=== PATIENT | female | born 1980 | race Caucasian/White ===

== ENCOUNTER 2019-05-18 09:54 | Day surgery (SDC) | payer OTHER ==
[2019-05-03 10:37] VITALS: BMI 23.4
--- NOTE | 2019-05-07 13:47 | HP ---
Admitting History and Physical - Primary Care Physician PCP: Ramon Sharma - Admission Chief Complaint: right breast atypia History of Present Illness: Patient is a 38 yo female who underwent a screening MRI (sec to family h/o breast cancer) and was noted to have a right 12 oclock enhancing mass which was confirmed on US. Patient underwent an FNA of this lesion on 01/20 and was noted to have right breast atypia. Patient is to undergo a right breast WE with NL. History Source: Patient Limitations to Obtaining History: No Limitations - Past Medical History ...LMP: 04/15/19 Additional Past Medical History: None - Past Surgical History Past Surgical History: Yes: None - Advance Directives Advance Directives: Yes: Health Care Proxy - Smoking History Smoking history: Never smoked Have you smoked in the past 12 months: No - Alcohol/Substance Use Hx Alcohol Use: Yes (OCCASIONAL) Home Medications - Allergies Allergies/Adverse Reactions: Allergies Allergy/AdvReac Type Severity Reaction Status Date / Time lidocaine AdvReac Intermediate SHAKINESS Verified 05/03/19 10:24 - Home Medications Home Medications: Ambulatory Orders NK [No Known Home Medication] 05/03/19 Family Medical History Family Hx Cancer: Mother (breast cancer at 39) Review of Systems - Review of Systems Constitutional: reports: No Symptoms Cardiovascular: reports: No Symptoms Respiratory: reports: No Symptoms Physical Examination Constitutional: Yes: Well Nourished, Calm Breast(s): Yes: Other (On exam, the breasts are symmetrical bilaterally. No suspicious masses or adenopathy noted bilaterally.) Problem List - Problems (1) Atypical hyperplasia of right breast Code(s): N60.91 - UNSPECIFIED BENIGN MAMMARY DYSPLASIA OF RIGHT BREAST Assessment/Plan Plan: Right breast WE with NL
[2019-05-18] MEDS ORDERED: BUPIVACAINE HCL/PF 2.5 MG/ML - 30 ML VIAL IJ ONE (12:59)
[2019-05-18] MEDS ORDERED: LIDOCAINE HCL 1%, 10 MG/ML (20ML VIAL) ONE (12:59)
[2019-05-18] MEDS ORDERED: MIDAZOLAM HCL 2 MG/2 ML SINGLE DOSE VIAL ONE (13:07)
[2019-05-18] MEDS ORDERED: PROPOFOL 20 ML ONE (13:21)
[2019-05-18] MEDS ORDERED: ePHEDrine SULFATE 50 MG/1 ML AMPULE ONE (13:51)
[2019-05-18] MEDS ORDERED: KETOROLAC TROMETHAMINE 30 MG/1 ML VIAL IVPUSH PRN (14:37)
[2019-05-18] MEDS ORDERED: ONDANSETRON 4 MG/2 ML VIAL IVPUSH PRN ×2 (14:37→15:44)
[2019-05-18] MEDS ORDERED: DEXTROSE 5%-0.45% SALINE 1,000 ML IV SCH (14:45)
[2019-05-18 15:25] VITALS: TEMP 97.8
[2019-05-18] MEDS ORDERED: oxyCODONE HCL 5 MG TABLET ONE (15:36)
[2019-05-18] MEDS ORDERED: oxyCODONE HCL 5 MG TABLET PO PRN ×2 (15:44)
[2019-05-18] MEDS ORDERED: PROMETHAZINE HCL 25 MG/1 ML VIAL IVPUSH PRN (15:44)
[2019-05-18 15:56] VITALS: BP 108/64; PULSE 72
--- NOTE | 2019-05-19 14:56 | OP ---
DATE OF OPERATION: 05/18/2019 PREOPERATIVE DIAGNOSIS: Right breast atypia. POSTOPERATIVE DIAGNOSIS: Right breast atypia. PROCEDURE: Right breast partial mastectomy with mammographic needle localization. ANESTHESIA: General laryngeal mask airway anesthesia. PRIMARY SURGEON: Geneva Sharma MD MONITOR TECHNICIAN: Anurag Mora, physician's staff assistant. COMPLICATIONS: None. INDICATIONS: Briefly, the patient is a 38-year-old nulliparous premenopausal female of [place] descent with a family history with her mother had breast cancer at age 39. The patient has been getting close followup and underwent mammography in December 2018 showing some findings in the right breast retroareolar region which were confirmed on ultrasound as an 8-mm density. Ultrasound-guided core biopsy in January 2019 with fine-needle aspiration showed atypia and stromal fibrosis. The patient was advised in undergoing a wide excision. She was brought in for the procedure on May 18, 2019. She first underwent mammographic needle localization with a clip and was brought to the holding area at [facility]. In the holding area, site verification was made and informed consent was obtained. She was brought into the operating room and laid on the OR table in a supine position. Venodynes were placed on the lower extremities prior to induction. She received general laryngeal mask airway anesthesia. No antibiotics were given, given the small nature of the excision. The right breast was sterilely prepped and draped in the usual fashion with the wire prepped in the field. Timeout was performed after she was anesthetized and sterilely prepped and draped. A curvilinear incision was made around the right breast 12 o'clock periareolar region. Dissection was undertaken around the needle localization, and the breast tissue was completely removed from around the wire, with the wire intact within the middle of the specimen. The specimen was oriented with a long lateral, short superior suture, and specimen radiograph showed removal of the clip in question. The specimen was placed in formalin to be sent to pathology. Hemostasis was achieved. The breast parenchyma was then reapproximated using 2-0 plain suture. The skin was closed using interrupted 3-0 deep dermal Vicryl suture and a running 4-0 subcuticular Monocryl suture. Mastisol and Steri-Strips were applied over the wound, with a compressive dressing placed over this. She was placed in a surgical bra postoperatively, and laryngeal mask airway tube as removed at the end of the case. The patient was awake and alert and brought to the postanesthesia care unit in stable condition. She will be recovered and discharged home the same day once discharge criteria are met. She is to follow up in the office in 1 week for formal wound pathology check. Again, all sponge and needle counts were correct at the end of the case. Estimated blood loss was minimal. GENEVA SHARMA M.D. [id number]
--- NOTE | 2019-05-20 14:35 | PATH ---
Surgical Pathology Report Patient Name: GARETT GRIJALVA [facility]. Rec. #: [id number] /Age/Gender: 1980 (Age: 38) / F Account: [id number] Location: [facility] Taken: 05/18/2019 Received: 05/18/2019 Reported: 05/20/2019 Physicians: Ramon Sharma M.D. Specimen(s) Received RIGHT BREAST WIDE EXCISION Clinical History Atypia on core biopsy Final Diagnosis BREAST, RIGHT, WIDE EXCISION: BENIGN BREAST TISSUE SHOWING FIBROCYSTIC CHANGES INCLUDING CYSTIC APOCRINE METAPLASIA, USUAL DUCTAL HYPERPLASIA (UDH) AND STROMAL FIBROSIS. PRIOR BIOPSY SITE CHANGES ARE PRESENT. Electronically Signed Payton Bocanegra M.D. Gross Description Received in formalin, labeled "right breast wide excision," is a 3.5 x 2.2 x 1.6 cm. vazquez-yellow, irregular, portion of fibroadipose tissue with a needle localization wire present. There is a short suture marking the superior aspect and a long suture marking the lateral aspect, per the surgeon. There is no skin present. The specimen is inked as follows: anterior and lateral red; superior blue; medial yellow; inferior green; posterior black. The specimen is serially sectioned from anterior to deep. Sectioning reveals diffuse dense white fibrous tissue. No definitive mass is identified. The specimen is entirely and sequentially submitted from anterior to posterior in 7 cassettes. Time to formalin fixation: Not given Total formalin fixation time: Approximately 24 hours DL/05/19/2019 saudi/05/19/2019
== END 2019-05-18 16:12 | disposition home or self-care (01) ==
LOC: FASU 09:54
PROVIDERS: ATTEND Surgery Surgical Oncology
PROC: 0HBT0ZZ Excision of Right Breast, Open Approach (ICD-10-PCS; principal; 2019-05-18 13:46)
DX: N60.11 Diffuse cystic mastopathy of right breast (principal); N60.31 Fibrosclerosis of right breast; N60.81 Other benign mammary dysplasias of right breast; N60.91 Unspecified benign mammary dysplasia of right breast; Z80.3 Family history of malignant neoplasm of breast
CPT/HCPCS: 19281; 84703; 94760